=== PATIENT | male | born 1980 | race Caucasian/White ===

== ENCOUNTER 2017-03-24 09:23 | Day surgery (SDC) | payer BC ==
[~2017-03-24 09:23] MED LIST: RINGER'S SOLUTION,LACTATED 1,000 ML IV PRN
[2017-03-24] MEDS ORDERED: RINGER'S SOLUTION,LACTATED 1,000 ML IV ONE (10:00)
[2017-03-24 12:02] VITALS: BP 119/75
--- NOTE | 2017-03-24 12:33 | OR ---
Operative Report - Dictated Report Narrative: Date: 03/24/2017 Preop diagnosis: GERD, epigastric pain Postop diagnosis: Bile reflux-mild, Esophagitis Procedure: EGD with biopsies Staff surgeon: Perico Jones MD Anesthesia: MAC per [employer] EBL: minimal Specimens: CLOtest, antrum biopsy cold forceps, [place] cold forceps x 2. Description: After informed consent and a bite block was inserted and IVs his sedation was administered per [employer] a flexible video endoscope was inserted through the bite block, through the posterior pharynx and into the esophagus under direct vision. The scope was then advanced through the esophagus, stomach, and into the third portion of the duodenum. The duodenum was grossly normal without ulceration. The scope was withdrawn into the stomach. There was some bile reflux. No gastritis or ulcers were noticed. Biopsy with cold forceps x 2 of the antrum were taken for CLOtest and anatomic pathology. The body of the stomach was inspected and was normal. Retroflexion of the scope within the stomach was normal. Endoscope was withdrawn into the distal esophagus. There were severe changes of esophagitis in this region and 2 cold forceps biopsies were taken. The remainder of the esophagus was unremarkable. The patient tolerated the procedure well and was discharged from the endoscopy suite in stable condition. Recommendations: Continue acid suppression. Add Carafate. Further recommendations are pending pathology.
== END 2017-03-24 09:24 | disposition home or self-care (01) ==
LOC: SUR 09:23 → AMB 09:23
PROVIDERS: ATTEND Specialist
PROC: 0DB38ZX Excision of Lower Esophagus, Via Natural or Artificial Opening Endoscopic, Diagnostic (ICD-10-PCS; principal; 2017-03-24)
PROC: 0DB78ZX Excision of Stomach, Pylorus, Via Natural or Artificial Opening Endoscopic, Diagnostic (ICD-10-PCS; 2017-03-24)
DX: K21.0 Gastro-esophageal reflux disease with esophagitis (principal); R10.13 Epigastric pain